=== PATIENT | male | born 1980 | race Caucasian/White ===

== ENCOUNTER 2023-09-17 07:48 | Emergency (ER) | payer OTHER, BC ==
[2023-09-17] MEDS ORDERED: Boostrix 0.5 ML (Tdap) VIAL (>/=7 yrs of age) ONE (09:02)
== END 2023-09-17 09:10 | disposition home or self-care (01) ==
LOC: CSHERS 07:48 → EEVIPCON 07:48 → CSHERS 09:10
DX: S01.112A Laceration without foreign body of left eyelid and periocular area, initial encounter (principal); Z23 Encounter for immunization; V49.40XA Driver injured in collision with unspecified motor vehicles in traffic accident, initial encounter
CPT/HCPCS: 12013; 90471; 90715

== ENCOUNTER 2023-09-24 09:34 | Emergency (ER) | payer BC, SELFPAY | END 2023-09-24 11:04 | disposition home or self-care (01) | LOC: EEVIPCON 09:34 → CSHERS 09:34 | DX: S01.81XD Laceration without foreign body of other part of head, subsequent encounter (principal); X58.XXXD Exposure to other specified factors, subsequent encounter ==